=== PATIENT | female | born 2000 | race Caucasian/White ===

== ENCOUNTER 2020-01-05 00:03 | Inpatient (IN) | payer OTHER ==
[~2020-01-05] VITALS: Ht 170.2 cm; Wt 114.3 kg
--- OUTSIDE RECORDS SUMMARY | ~2020-01-05 | XMS | Encounter Summary ---
Demographics + + + | Address | [address] | | | [place] [address] | + + + | Home Phone | | + + + | Preferred Language | Unknown | + + + | Marital Status | Single | + + + | Anabaptism Affiliation | Unknown | + + + | Race | White | + + + | Ethnic Group | Not or | + + + Author + + + | Author | [facility] | | | and [place] | + + + | Organization | [facility] | | | and [place] | + + + | Address | Unknown | + + + | Phone | Unavailable | + + + Support + + +---------+ + | Name | Relationship | Address | Phone | + + +---------+ + | Radha L Milo | ECON | Unknown | | + + +---------+ + Care Team Providers + +------+ + | Care Webfed Offset Press Operator Name | Role | Phone | + +------+ + PCP | Unavailable | + +------+ + Encounter Details +--------+ + + + + | Date | Type | Department | Care Team | Description | +--------+ + + + + | 12/15/ | Hospital | [facility] | | | | 2002 - | Encounter | [facility] | | | | | | [address] | | | | 12/18/ | | [place] [address] | | | | 2002 | | [phone] | | | +--------+ + + + + Social History + +-------+ +--------+------+ | Tobacco Use | Types | Packs/Day | Years | Date | | | | | Used | | + +-------+ +--------+------+ | Never Assessed | | | | | + +-------+ +--------+------+ + + + | Sex Assigned at | Date Recorded | | | | + + + | Not on file | | + + + documented as of this encounter Plan of Treatment Not on filedocumented as of this encounter Visit Diagnoses Not on filedocumented in this encounter"
--- OUTSIDE RECORDS SUMMARY | ~2020-01-05 | XMS | Clinical Summary ---
Demographics + + + | Address | [address] | | | [place] [address] | + + + | Home Phone | | + + + | Preferred Language | Unknown | + + + | Marital Status | Single | + + + | Rastafari Affiliation | Unknown | + + + | Race | White | + + + | Ethnic Group | Not or | + + + Author + + + | Author | [facility] | | | and [place] | + + + | Organization | [facility] | | | and [...] Team Providers + +------+ + | Care Certified Technician Specialist Name | Role | Phone | + +------+ + | Unknown, Doctor | PCP | | + +------+ + Allergies No Known Allergies Medications + + + +---------+------+------+-------+ | Medication | Sig | Dispensed | Refills | Star | End | Statu | | | | | | t | Date | s | | | | | | Date | | | + + + +---------+------+------+-------+ | Multiple | Take 1 tablet by | | 0 | | | Activ | | Vitamins-Minerals | mouth Daily. | | | | | e | | (ADULT MULTIVITAMIN | | | | | | | | WITH MINERALS/IRON) | | | | | | | | TABS | | | | | | | + + + +---------+------+------+-------+ Active Problems Not on file Social History + +-------+ +--------+------+ | Tobacco Use | Types | Packs/Day | Years | Date | | | | | Used | | + +-------+ +--------+------+ | Never Smoker | | | | | + +-------+ +--------+------+ + + +---------+ + | Alcohol Use | Drinks/Week | oz/Week | Comments | + + +---------+ + | No | | | | + + +---------+ + + + + | Sex Assigned at | Date Recorded | | | | + + + | Not on file | | + + + Last Filed Vital Signs + + + + + | Vital Sign | Reading | Time Taken | Comments | + + + + + | Blood Pressure | 115/65 | 12/20/2015 7:42 PM | | | | | PDT | | + + + + + | Pulse | 77 | 12/20/2015 7:42 PM | | | | | PDT | | + + + + + | Temperature | 37.4 C (99.4 F) | 12/20/2015 7:42 PM | | | | | PDT | | + + + + + | Respiratory Rate | 16 | 12/20/2015 7:42 PM | | | | | PDT | | + + + + + | Oxygen Saturation | 99% | 12/20/2015 7:42 PM | | | | | PDT | | + + + + + | Inhaled Oxygen | - | - | | | Concentration | | | | + + + + + | Weight | 94.8 kg (209 lb) | 12/20/2015 4:45 PM | | | | | PDT | | + + + + + | Height | 170.2 cm (5' 7") | 12/20/2015 4:37 PM | | | | | PDT | | + + + + + | Body Mass Index | 32.73 | 12/20/2015 4:37 PM | | | | | PDT | | + + + + + Plan of Treatment + + +-------+ + | Health Maintenance | Due Date | Last | Comments | | | | Done | | + + +-------+ + | Well Child Check | | | | | | 4 | | | + + +-------+ + | Vaccine: HPV (1 - | | | | | 2-dose series) | 2 | | | + + +-------+ + | Vaccine: | | | | | Dtap/Tdap/Td (1 - | 0 | | | | Tdap) | | | | + + +-------+ + | Vaccine: Influenza | | | | | (#1) | 0 | | | + + +-------+ + Results Not on filefrom Last 3 Months Advance Directives + + + + + | Type | Date Recorded | Patient | Explanation | | | | Metallurgical Engineer | | + + + + + | Power of | | | | | Controls Engineer | | | | + + + + + | Advance | 12/20/2015 5:45 | | | | Directive | PM | | | + + + + +
--- OUTSIDE RECORDS SUMMARY | ~2020-01-05 | XMS | Encounter Summary ---
Demographics + + + | Address | [address] | | | [place] [address] | + + + | Home Phone | | + + + | Preferred Language | Unknown | + + + | Marital Status | Single | + + + | Mu-Ism Affiliation | Unknown | + + + | Race | White | + + + | Ethnic Group | Not or | + + + Author + + + | Author | [facility] | | | and Juan Pabloana | + + + | Organization | [facility] | | | and [...] Team Providers + +------+ + | Care As400 Consultant Name | Role | Phone | + +------+ + | Unknown, Doctor | PCP | | + +------+ + Reason for Visit + + + | Reason | Comments | + + + | Abdominal Pain | | + + + Encounter Details +--------+ + + + + | Date | Type | Department | Care Team | Description | +--------+ + + + + | 12/19/ | Emergency | [facility] | Jm Simeon, | Sofiaelonephritis | | 2016 | | [facility] | MD [address] | (Primary Dx) | | | | CENTER [address] | [facility] [place] | | | | | [place], [place] | [place] [address] | | | | | [address] | [phone] | | | | | [phone] | | | +--------+ + + + [...] + + documented as of this encounter Last Filed Vital Signs + + + [...] | | + + + + + documented in this encounter Discharge Instructions Instructions Jm Simeon MD - 12/20/2015Take the antibiotics as prescribed Tylenol and/or ibuprofen for pain Stay well-hydrated Follow-up with your primary care provider AttachmentsThe following attachments cannot be sent through Care Everywhere.PYELONEPHRITIS (PEDIATRIC), DISCHARGE INSTRUCTIONS (FAROESE)documented in this encounter Medications at Time of Discharge + + + +---------+ + + | Medication | Sig | Dispensed | Refills | Start | End Date | | | | | | Date | | + + + +---------+ + + | Multiple | Take 1 tablet by | | 0 | | | | Vitamins-Minerals | mouth Daily. | | | | | | (ADULT MULTIVITAMIN | | | | | | | WITH MINERALS/IRON) | | | | | | | TABS | | | | | | + + + +---------+ + + | cefdinir (OMNICEF) | Take 1 capsule by | 20 | 0 | 12/20/19 | | | 300 mg capsule | mouth 2 times daily | capsule | | 16 | 6 | | | for 10 days. | | | | | + + + +---------+ + + documented as of this encounter ED Raza Cage RN - 12/20/2015 7:41 PM PDTPt d/c in stable condition with family.El ectronically signed by Raza Albert RN at 12/20/2015 7:42 PM Jm Woodson MD - 12/20/2015 5:06 PM PDT [facility] Princess Pedraza Emergency Department Encounter Note [address] [place] [id number] PCP:Doctor Unknown [phone] CHIEF COMPLAINT Chief Complaint Patient presents with Abdominal Pain HPI Princess Pedraza is a 15 y.o. female who presents to the emergency department with righ t flank pain. This patient has been having right flank pain for the past 2 weeks. The pain seems to be more severe. The pain is constant with episodes of increased pain. She's had intermittent nausea. No diarrhea or constipation. She does started her menstrual cycle tod ay. She denies dysuria or frequency. He should. No fever. She is having some pain in the right side of her back as well. She's had mild similar pains before, none this severe. Mo ving does tend to make the pain worse. Holding still makes the pain better however she stil l has the pain. She denies any injuries. She is providing her own history. She is accompa nied by her parents here in the ER. She is from [place], [place]. PAST MEDICAL HISTORY No past medical history on file. SURGICAL HISTORY No past surgical history on file. CURRENT MEDICATIONS Discharge Medication List as of 12/20/2015 19:42 CONTINUE these medications which have NOT CHANGED Details Multiple Vitamins-Minerals (ADULT MULTIVITAMIN WITH MINERALS/IRON) TABS Take 1 tablet by mo uth Daily.Historical Med ALLERGIES No Known Allergies FAMILY HISTORY No family history on file. SOCIAL HISTORY Social History Social History Marital Status: Single Spouse Name: N/A Number of Children: N/A Years of Education: N/A Social History Main Topics Smoking status: Never Smoker Smokeless tobacco: Not on file Alcohol Use: No Drug Use: Not on file Sexual Activity: Not on file Other Topics Concern Not on file Social History Narrative No narrative on file REVIEW OF SYSTEMS All systems reviewed and found negative except what is in the HPI PHYSICAL EXAM VITAL SIGNS: BP 137/73 mmHg | Pulse 103 | Temp(Src) 37.3 C (99.2 F) (Oral) | Resp 16 | Ht 1.702 m (5' 7") | Wt 94.802 kg (209 lb) | BMI 32.73 kg/m2 | SpO2 100% | LMP 12/20/2015 ( Exact Date) Constitutional: Well developed, Well nourished, No acute distress, Non-toxic appearance. HENT: Normocephalic, Atraumatic, Bilateral external ears normal, Mucous membranes are mois t, Nasal mucosa is normal. Oropharynx is clear. Eyes: Conjunctiva normal, No discharge. Palpebral conjunctiva are pink. Neck: Normal range of motion, No tenderness, Supple, No stridor. Respiratory: No respiratory distress, No wheezing Cardiovascular: Normal heart rate, Normal rhythm, No murmurs appreciated. GI: Soft, mild right mid abdomen tenderness, No peritoneal signs, No masses Extremities: Warm and well perfused, no edema, no joint swelling or deformity. Good ROM. Back: No CVAT, No tenderness of the thoracic or lumbar spine. Skin: Warm, Dry, No erythema, No induration, No rash. Neurologic: Alert & oriented x 3, No focal motor or sensory deficits. Speech is clear. G ait is normal. RADIOLOGY CT scan of the abdomen and pelvis with IV contrast: IMPRESSION: No significant findings on CT abdomen pelvis ED COURSE & MEDICAL DECISION MAKING Pertinent Labs & Imaging studies reviewed. (See chart for details) The patient was seen and examined shortly after arriving in the emergency department. Hist ory and physical were obtained, vital signs were noted. Patient has right-sided abdomen lion n. UA is convincing for infection. She had some tenderness on exam with a elevated white b lood cell count. The CT scan was done with the findings noted above. Her findings are most consistent with right-sided pyelonephritis. Outpatient treatment is indicated. She was gi herminia a first dose of antibiotics here in the ER. FINAL IMPRESSION 1. Pyelonephritis PLAN Follow-up Information Follow up with your doctor In 1 week. Follow up with Henok [facility]. Call in 1 day. Why: to help get referred to a primary care provider Contact information: [phone] Discharge Medication List as of 12/20/2015 19:42 START taking these medications Details cefdinir (OMNICEF) 300 mg capsule Take 1 capsule by mouth 2 times daily for 10 days.Disp-20 capsule, R-0, Print Jm Simeon MD 12/20/15 [id number] docume nted in this encounter Miscellaneous Notes ED Triage Notes - Raza Albert RN - 12/20/2015 4:35 PM PDTPt c/o RUQ pain for keyana andrew 2 weeks, becoming more severe. Intermittent nausea, no change in BM. Electronically sign ed by Raza Albert RN at 12/20/2015 4:37 PM PDTdocumented in this encounter Plan of Treatment Not on filedocumented as of this encounter Procedures + +--------+ + + + | Procedure Name | Priori | Date/Time | Associated Diagnosis | Comments | | | ty | | | | + +--------+ + + + | CT ABDOMEN PELVIS W | STAT | 12/20/2015 | | Results for this | | CONTRAST | | 6:40 PM | | procedure are in the | | | | PDT | | results section. | + +--------+ + + + | CBC WITH | STAT | 12/20/2015 | | Results for this | | DIFFERENTIAL | | 5:46 PM | | procedure are in the | | | | PDT | | results section. | + +--------+ + + + | , SERUM, | STAT | 12/20/2015 | | Results for this | | QUAL | | 5:46 PM | | procedure are in the | | | | PDT | | results section. | + +--------+ + + + | LIPASE | STAT | 12/20/2015 | | Results for this | | | | 5:46 PM | | procedure are in the | | | | PDT | | results section. | + +--------+ + + + | COMPREHENSIVE | STAT | 12/20/2015 | | Results for this | | METABOLIC PANEL | | 5:46 PM | | procedure are in the | | | | PDT | | results section. | + +--------+ + + + | URINALYSIS WITH | STAT | 12/20/2015 | | Results for this | | MICROSCOPIC WITH | | 5:37 PM | | procedure are in the | | CULTURE IF INDICATED | | PDT | | results section. | + +--------+ + + + | CULTURE, URINE | Routin | 12/20/2015 | | Results for this | | | e | 5:37 PM | | procedure are in the | | | | PDT | | results section. | + +--------+ + + + documented in this encounter Results CT Abdomen Pelvis w Contrast (12/20/2015 6:40 PM PDT) + + | Specimen | + + | | + + + + + | Narrative | Performed At | + + + | EXAM: CT ABDOMEN PELVIS W CONTRAST dated 12/20/2015 6:35 PM | [facility] | | HISTORY:right side abdominal pain Comparison: None. TECHNIQUE: | | | Imaging is performed from the lung bases through the pubic symphysis | | | following the uneventful intravenous administration of 85 mL | | | Omnipaque 350. DOSE: DLP 612.10 mGy-cm FINDINGS: LUNG | | | BASES: The lung bases are clear. There is no visible pleural | | | effusion or pneumothorax. There is no significant pericardial | | | thickening. LIVER: The liver is unremarkable in attenuation and | | | enhancement. There are no focal liver lesions. GALLBLADDER: The | | | gallbladder is not distended. There are no calcified | | | cholelithiasis. No visible biliary ductal dilatation. SPLEEN: | | | The spleen is unremarkable. There is no splenomegaly. PANCREAS: | | | The pancreas is unremarkable. The pancreatic duct is not dilated. | | | ADRENALS: No adrenal enlargement. No adrenal masses. KIDNEYS: | | | The kidneys are symmetrically enhancing. There are no focal renal | | | lesions. There is no nephrolithiasis. There is no obstructive | | | uropathy. BOWEL: The gastrointestinal tract is unremarkable. | | | There is no evidence for gastrointestinal tract obstruction. | | | There is no evidence for appendicitis. There is no significant | | | diverticular disease. VASCULATURE AND LYMPH NODES: There is no | | | aneurysmal dilatation of the abdominal aorta. The major venous | | | structures are patent and unremarkable. There is no pelvic or | | | abdominal lymphadenopathy. BLADDER: The bladder is decompressed | | | and not well evaluated. UTERUS AND ADNEXA:The uterus is | | | unremarkable. There is a prominent follicle in the left ovary. | | | BONES: There are no acute osseous abnormalities. There are no lytic | | | or blastic bone lesions. OTHER: There is no free fluid. There | | | is no free air. IMPRESSION - Negative for acute abdominal or | | | pelvic process. The preliminary report is provided by Dr. Noland | | | on December 20, 2015 at 6:54 PM. Dictated and Signed by: | | | Lázaro San MD Electronically signed: 12/21/2015 8:08 AM | | + + + + + | Procedure Note | + + | Ankush Alcazar Results In - 12/21/2015 8:11 AM PDT EXAM: CT ABDOMEN PELVIS W CONTRAST | | dated 12/20/2015 6:35 PMHISTORY:right side abdominal painComparison: None.TECHNIQUE: | | Imaging is performed from the lung bases through the pubic symphysisfollowing the | | uneventful intravenous administration of 85 mL Omnipaque 350.DOSE: DLP 612.10 | | mGy-cmFINDINGS: LUNG BASES: The lung bases are clear. There is no visible pleural | | effusion orpneumothorax. There is no significant pericardial thickening.LIVER: The | | liver is unremarkable in attenuation and enhancement. There are nofocal liver | | lesions.GALLBLADDER: The gallbladder is not distended. There are no | | calcifiedcholelithiasis. No visible biliary ductal dilatation.SPLEEN: The spleen is | | unremarkable. There is no splenomegaly.PANCREAS: The pancreas is unremarkable. The | | pancreatic duct is not dilated.ADRENALS: No adrenal enlargement. No adrenal | | masses.KIDNEYS: The kidneys are symmetrically enhancing. There are no focal | | renallesions. There is no nephrolithiasis. There is no obstructive uropathy.BOWEL: The | | gastrointestinal tract is unremarkable. There is no evidence forgastrointestinal tract | | obstruction. There is no evidence for appendicitis. There is no significant | | diverticular disease.VASCULATURE AND LYMPH NODES: There is no aneurysmal dilatation of | | the abdominalaorta. The major venous structures are patent and unremarkable. There is | | nopelvic or abdominal lymphadenopathy.BLADDER: The bladder is decompressed and not well | | evaluated.UTERUS AND ADNEXA:The uterus is unremarkable. There is a prominent follicle | | inthe left ovary.BONES: There are no acute osseous abnormalities. There are no lytic or | | blasticbone lesions.OTHER: There is no free fluid. There is no free air.IMPRESSION - | | Negative for acute abdominal or pelvic process.The preliminary report is provided by | | Ludin on December 20, 2015 at 6:54PM.Dictated and Signed by: Lázaro San MD | | Electronically signed: 12/21/2015 8:08 AM | |PANCREAS: The pancreas is unremarkable. The pancreatic duct is not dilated. | | | |ADRENALS: No adrenal enlargement. No adrenal masses. | | | |KIDNEYS: The kidneys are symmetrically enhancing. There are no focal renal | |lesions. There is no nephrolithiasis. There is no obstructive uropathy. | | | |BOWEL: The gastrointestinal tract is unremarkable. There is no evidence for | |gastrointestinal tract obstruction. There is no evidence for appendicitis. | |There is no significant diverticular disease. | | | |VASCULATURE AND LYMPH NODES: There is no aneurysmal dilatation of the abdominal | |aorta. The major venous structures are patent and unremarkable. There is no | |pelvic or abdominal lymphadenopathy. | | | |BLADDER: The bladder is decompressed and not well evaluated. | | | |UTERUS AND ADNEXA:The uterus is unremarkable. There is a prominent follicle in | |the left ovary. | | | |BONES: There are no acute osseous abnormalities. There are no lytic or blastic | |bone lesions. | | | |OTHER: There is no free fluid. There is no free air. | | | |IMPRESSION - | | | |Negative for acute abdominal or pelvic process. | | | |The preliminary report is provided by Dr. Noland on December 20, 2015 at 6:54 | |PM. | | | | | |Dictated and Signed by: Lázaro San MD | | Electronically signed: 12/21/2015 8:08 AM | + + + +---------+ + + | Performing | Address | City/State/Zipcode | Phone Number | | Organization | | | | + +---------+ + + | [facility] | | | | + +---------+ + + , Serum, Qual (12/20/2015 5:46 PM PDT) + + + + + + | Component | Value | Ref Range | Performed | Pathologist | | | | | At | Signature | + + + + + + | hCG Screen, | Negative | Negative | [facility] | | | Serum | | | [facility] | | | | | | MEDICAL | | | | | | CENTER - | | | | | | LABORATORY | | + + + + + + + + | Specimen | + + | Blood | + + + + + + + | Performing | Address | City/State/Zipcode | Phone Number | | Organization | | | | + + + + + | [facility] | [address] | [place] | [phone] | | [facility] | | [address] | | | - LABORATORY | | | | + + + + + Lipase (12/20/2015 5:46 PM PDT) + +-------+ + + + | Component | Value | Ref Range | Performed | Pathologist | | | | | At | Signature | + +-------+ + + + | Lipase | 21 | 0 - 60 U/L | [facility] | | | | | | [facility] | | | | | | MEDICAL | | | | | | CENTER - | | | | | | LABORATORY | | + +-------+ + + + + + | Specimen | + + | Blood | + + + + + + + | Performing | Address | City/State/Zipcode | Phone Number | | Organization | | | | + + + + + | [facility] | [address] | [place] | [phone] | | [facility] | | [address] | | | - LABORATORY | | | | + + + + + Comprehensive Metabolic Panel (12/20/2015 5:46 PM PDT) + + + + + + | Component | Value | Ref Range | Performed | Pathologist | | | | | At | Signature | + + + + + + | Na | 142 | 136 - 149 | [facility] | | | | | mmol/L | [facility] | | | | | | MEDICAL | | | | | | CENTER - | | | | | | LABORATORY | | + + + + + + | K | 3.6 | 3.5 - 5.1 | [facility] | | | | | mmol/L | [facility] | | | | | | MEDICAL | | | | | | CENTER - | | | | | | LABORATORY | | + + + + + + | Cl | 106 | 98 - 109 mmol/L | [facility] | | | | | | [facility] | | | | | | MEDICAL | | | | | | CENTER - | | | | | | LABORATORY | | + + + + + + | CO2 | 23 (L) | 24 - 31 mmol/L | [facility] | | | | | | [facility] | | | | | | MEDICAL | | | | | | CENTER - | | | | | | LABORATORY | | + + + + + + | Anion Gap | 13 | 3 - 16 mmol/L | [facility] | | | | | | [facility] | | | | | | MEDICAL | | | | | | CENTER - | | | | | | LABORATORY | | + + + + + + | Glucose | 101 | 70 - 109 mg/dL | [facility] | | | | | | [facility] | | | | | | MEDICAL | | | | | | CENTER - | | | | | | LABORATORY | | + + + + + + | BUN | 9 | 7 - 18 mg/dL | [facility] | | | | | | [facility] | | | | | | MEDICAL | | | | | | CENTER - | | | | | | LABORATORY | | + + + + + + | Creatinine | 0.82 | 0.60 - 1.30 | [facility] | | | | | mg/dL | [facility] | | | | | | MEDICAL | | | | | | CENTER - | | | | | | LABORATORY | | + + + + + + | eGFR, | Comment: GFR not | >=60 | [facility] | | | non- | calculated for this age | mL/min/1.73m2 | [facility] | | | [place] | (<18). | | MEDICAL | | | | | | CENTER - | | | | | | LABORATORY | | + + + + + + | Calcium | 9.1 | 8.3 - 10.5 | [facility] | | | | | mg/dL | [facility] | | | | | | MEDICAL | | | | | | CENTER - | | | | | | LABORATORY | | + + + + + + | Albumin | 4.1 | 3.2 - 5.0 g/dL | [facility] | | | | | | [facility] | | | | | | MEDICAL | | | | | | CENTER - | | | | | | LABORATORY | | + + + + + + | Bilirubin | 0.7Comment: This is an | <2.0 mg/dL | [facility] | | | Total | appended report. These | | [facility] | | | | results have been | | MEDICAL | | | | appended to a previously | | CENTER - | | | | preliminary verified | | LABORATORY | | | | report. | | | | + + + + + + | Total | 6.7 | 6.0 - 7.8 g/dL | [facility] | | | Protein | | | [facility] | | | | | | MEDICAL | | | | | | CENTER - | | | | | | LABORATORY | | + + + + + + | AST | 19Comment: This is an | 10 - 42 U/L | [facility] | | | | appended report. These | | [facility] | | | | results have been | | MEDICAL | | | | appended to a previously | | CENTER - | | | | preliminary verified | | LABORATORY | | | | report. | | | | + + + + + + | ALT | 17Comment: This is an | 6 - 45 U/L | [facility] | | | | appended report. These | | [facility] | | | | results have been | | MEDICAL | | | | appended to a previously | | CENTER - | | | | preliminary verified | | LABORATORY | | | | report. | | | | + + + + + + | Alkaline | 80Comment: This is an | 40 - 110 U/L | [facility] | | | Phosphatase | appended report. These | | [facility] | | | | results have been | | MEDICAL | | | | appended to a previously | | CENTER - | | | | preliminary verified | | LABORATORY | | | | report. | | | | + + + + + + | Globulin | 2.6 | 2.1 - 3.8 g/dL | [facility] | | | | | | [facility] | | | | | | MEDICAL | | | | | | CENTER - | | | | | | LABORATORY | | + + + + + + | Albumin/Angelina | 1.6 | 0.8 - 2.0 | [facility] | | | bulin Ratio | | | [facility] | | | | | | MEDICAL | | | | | | CENTER - | | | | | | LABORATORY | | + + + + + + | BUN/Creatin | 11.0 | | [facility] | | | ine Ratio | | | [facility] | | | | | | MEDICAL | | | | | | CENTER - | | | | | | LABORATORY | | + + + + + + + + | Specimen | + + | Blood | + + + + + + + | Performing | Address | City/State/Zipcode | Phone Number | | Organization | | | | + + + + + | [facility] | [address] | [place] | [phone] | | [facility] | | [address] | | | - LABORATORY | | | | + + + + + CBC with Differential (12/20/2015 5:46 PM PDT) + + + + + + | Component | Value | Ref Range | Performed | Pathologist | | | | | At | Signature | + + + + + + | White Blood | 13.4 (H) | 4.0 - 11.0 K/uL | [facility] | | | Cells | | | [facility] | | | | | | MEDICAL | | | | | | CENTER - | | | | | | LABORATORY | | + + + + + + | Red Blood | 4.76 | 3.70 - 5.20 | [facility] | | | Cells | | M/uL | [facility] | | | | | | MEDICAL | | | | | | CENTER - | | | | | | LABORATORY | | + + + + + + | Hemoglobin | 13.9 | 11.5 - 16.0 | [facility] | | | | | g/dL | [facility] | | | | | | MEDICAL | | | | | | CENTER - | | | | | | LABORATORY | | + + + + + + | Hematocrit | 39.4 | 34.0 - 47.0 % | [facility] | | | | | | [facility] | | | | | | MEDICAL | | | | | | CENTER - | | | | | | LABORATORY | | + + + + + + | MCV | 82.7 (L) | 83.0 - 101.0 fL | [facility] | | | | | | [facility] | | | | | | MEDICAL | | | | | | CENTER - | | | | | | LABORATORY | | + + + + + + | MCH | 29.1 | 28.0 - 35.0 pg | [facility] | | | | | | [facility] | | | | | | MEDICAL | | | | | | CENTER - | | | | | | LABORATORY | | + + + + + + | MCHC | 35.3 | 32.0 - 36.0 | [facility] | | | | | g/dL | [facility] | | | | | | MEDICAL | | | | | | CENTER - | | | | | | LABORATORY | | + + + + + + | RDW-CV | 13.9 | <15.0 % | [facility] | | | | | | [facility] | | | | | | MEDICAL | | | | | | CENTER - | | | | | | LABORATORY | | + + + + + + | Platelet | 250 | 140 - 440 K/uL | [facility] | | | Count | | | [facility] | | | | | | MEDICAL | | | | | | CENTER - | | | | | | LABORATORY | | + + + + + + | MPV | 7.6 | fL | [facility] | | | | | | [facility] | | | | | | MEDICAL | | | | | | CENTER - | | | | | | LABORATORY | | + + + + + + | % | 75.4 | 45.0 - 82.0 % | [facility] | | | Neutrophils | | | [facility] | | | | | | MEDICAL | | | | | | CENTER - | | | | | | LABORATORY | | + + + + + + | % | 17.3 (L) | 20.0 - 45.0 % | [facility] | | | Lymphocytes | | | [facility] | | | | | | MEDICAL | | | | | | CENTER - | | | | | | LABORATORY | | + + + + + + | % Monocytes | 6.2 | 4.0 - 12.0 % | [facility] | | | | | | [facility] | | | | | | MEDICAL | | | | | | CENTER - | | | | | | LABORATORY | | + + + + + + | % | 0.5 | 0.0 - 5.0 % | [facility] | | | Eosinophils | | | [facility] | | | | | | MEDICAL | | | | | | CENTER - | | | | | | LABORATORY | | + + + + + + | % Basophils | 0.6 | 0.0 - 1.0 % | [facility] | | | | | | [facility] | | | | | | MEDICAL | | | | | | CENTER - | | | | | | LABORATORY | | + + + + + + | Absolute | 10.10 (H) | 1.80 - 8.50 | [facility] | | | Neutrophils | | K/uL | [facility] | | | | | | MEDICAL | | | | | | CENTER - | | | | | | LABORATORY | | + + + + + + | Absolute | 2.30 | 0.60 - 3.20 | [facility] | | | Lymphocytes | | K/uL | [facility] | | | | | | MEDICAL | | | | | | CENTER - | | | | | | LABORATORY | | + + + + + + | Absolute | 0.80 | 0.00 - 1.00 | [facility] | | | Monocytes | | K/uL | [facility] | | | | | | MEDICAL | | | | | | CENTER - | | | | | | LABORATORY | | + + + + + + | Absolute | 0.10 | 0.00 - 0.40 | [facility] | | | Eosinophils | | K/uL | [facility] | | | | | | MEDICAL | | | | | | CENTER - | | | | | | LABORATORY | | + + + + + + | Absolute | 0.10 | 0.00 - 0.10 | [facility] | | | Basophils | | K/uL | [facility] | | | | | | MEDICAL | | | | | | CENTER - | | | | | | LABORATORY | | + + + + + + + + | Specimen | + + | Blood | + + + + + + + | Performing | Address | City/State/Zipcode | Phone Number | | Organization | | | | + + + + + | [facility] | [address] | [place] | [phone] | | [facility] | | [address] | | | - LABORATORY | | | | + + + + + Culture, Urine (12/20/2015 5:37 PM PDT) + + + + + + | Component | Value | Ref Range | Performed | Pathologist | | | | | At | Signature | + + + + + + | Culture | No Growth | | [facility] | | | | | | [facility] | | | | | | MEDICAL | | | | | | CENTER - | | | | | | LABORATORY | | + + + + + + + + | Specimen | + + | Urine - Urine | | specimen obtained | | via indwelling | | urinary catheter | | (specimen) | + + + + + + + | Performing | Address | City/State/Zipcode | Phone Number | | Organization | | | | + + + + + | [facility] | [address] | [place] | [phone] | | [facility] | | [address] | | | - LABORATORY | | | | + + + + + Urinalysis with Microscopic with Culture if Indicated (12/20/2015 5:37 PM PDT) + + + + + + | Component | Value | Ref Range | Performed | Pathologist | | | | | At | Signature | + + + + + + | Color, | Lida (A) | Light Yellow, | [facility] | | | Urine | | Yellow, Straw | [facility] | | | | | | MEDICAL | | | | | | CENTER - | | | | | | LABORATORY | | + + + + + + | Clarity, | Hazy (A) | Clear | [facility] | | | Urine | | | [facility] | | | | | | MEDICAL | | | | | | CENTER - | | | | | | LABORATORY | | + + + + + + | pH, Urine | 5.0 | 5.0 - 8.0 | [facility] | | | | | | [facility] | | | | | | MEDICAL | | | | | | CENTER - | | | | | | LABORATORY | | + + + + + + | Specific | 1.045 (H) | 1.001 - 1.030 | [facility] | | | [place], | | | [facility] | | | Urine | | | MEDICAL | | | | | | CENTER - | | | | | | LABORATORY | | + + + + + + | Protein, | 100 mg/dL (A) | Negative | [facility] | | | Urine | | | [facility] | | | | | | MEDICAL | | | | | | CENTER - | | | | | | LABORATORY | | + + + + + + | Blood, | Negative | Negative | [facility] | | | Urine | | | [facility] | | | | | | MEDICAL | | | | | | CENTER - | | | | | | LABORATORY | | + + + + + + | Glucose, | Negative | Negative | [facility] | | | Urine | | | [facility] | | | | | | MEDICAL | | | | | | CENTER - | | | | | | LABORATORY | | + + + + + + | Ketones, | 20 mg/dL (A) | Negative | [facility] | | | Urine | | | [facility] | | | | | | MEDICAL | | | | | | CENTER - | | | | | | LABORATORY | | + + + + + + | Bilirubin, | Small (A) | Negative | [facility] | | | Urine | | | [facility] | | | | | | MEDICAL | | | | | | CENTER - | | | | | | LABORATORY | | + + + + + + | Nitrite, | Negative | Negative | [facility] | | | Urine | | | [facility] | | | | | | MEDICAL | | | | | | CENTER - | | | | | | LABORATORY | | + + + + + + | Leukocyte | Negative | Negative | [facility] | | | Esterase, | | | [facility] | | | Urine | | | MEDICAL | | | | | | CENTER - | | | | | | LABORATORY | | + + + + + + | Urobilinoge | Negative | 0.2 mg/dL, 1.0 | [facility] | | | n, Urine | | mg/dL, Negative | [facility] | | | | | | MEDICAL | | | | | | CENTER - | | | | | | LABORATORY | | + + + + + + | White Blood | 10-15 (A) | 0 - 2 /HPF | [facility] | | | Cells, | | | [facility] | | | Urine | | | MEDICAL | | | | | | CENTER - | | | | | | LABORATORY | | + + + + + + | Red Blood | 2-5 (A) | 0 - 2 /HPF | [facility] | | | Cells, | | | [facility] | | | Urine | | | MEDICAL | | | | | | CENTER - | | | | | | LABORATORY | | + + + + + + | Squamous | 50-100 (A) | 0 - 2 /LPF | [facility] | | | Epithelial | | | [facility] | | | Cells, | | | MEDICAL | | | Urine | | | CENTER - | | | | | | LABORATORY | | + + + + + + | Transitiona | 0-2 | 0 - 2 /HPF | [facility] | | | l | | | [facility] | | | Epithelial | | | MEDICAL | | | Cells, | | | CENTER - | | | Urine | | | LABORATORY | | + + + + + + | Bacteria, | 1+ (A) | Negative /HPF | [facility] | | | Urine | | | [facility] | | | | | | MEDICAL | | | | | | CENTER - | | | | | | LABORATORY | | + + + + + + | Mucus, | Present (A) | Negative /LPF | [facility] | | | Urine | | | [facility] | | | | | | MEDICAL | | | | | | CENTER - | | | | | | LABORATORY | | + + + + + + | Urine | Urine Culture Set Up | | [facility] | | | Comment | | | [facility] | | | | | | MEDICAL | | | | | | CENTER - | | | | | | LABORATORY | | + + + + + + + + | Specimen | + + | Urine - Urine | | specimen obtained | | via indwelling | | urinary catheter | | (specimen) | + + + + + + + | Performing | Address | City/State/Zipcode | Phone Number | | Organization | | | | + + + + + | [facility] | [address] | [place] | [phone] | | [facility] | | [address] | | | - LABORATORY | | | | + + + + + documented in this encounter Visit Diagnoses + + | Diagnosis | + + | Pyelonephritis - Primary Pyelonephritis, unspecified | + + documented in this encounter Administered Medications + +---------+ +------+-------+------+ | Medication Order | MAR | Action | Dose | Rate | Site | | | Action | Date | | | | + +---------+ +------+-------+------+ | cefTRIAXone (ROCEPHIN) 1 g in | New Bag | 12/20/19 | 1 g | 100 | | | sodium chloride 0.9% 50 mL IVPB | | 16 7:10 | | mL/hr | | | 1 g, Intravenous, Administer over | | PM PDT | | | | | 30 Minutes, ONCE, Olga 9/22/16 at | | | | | | | 1905, For 1 dose, Activate | | | | | | | system and mix before use., | | | | | | | Indications: UTI - UPPER | | | | | | + +---------+ +------+-------+------+ +---+---+ | | | +---+---+ + +-------+ +--------+---+---+ | iohexol (OMNIPAQUE 350) 350 | Given | 12/20/19 | 85 mLs | | | | mg/mL injection 85 mL 85 mL, | | 16 6:40 | | | | | Intravenous, ONCE PRN, Other, | | PM PDT | | | | | Starting [facility] 12/20/15 at 1830, For | | | | | | | 1 dose, Cat Scanner | | | | | | + +-------+ +--------+---+---+ +---+---+ | | | +---+---+ documented in this encounter
[~2020-01-05 00:03] MED LIST: ACETAMINOPHEN325 M1 PO; MOTRIN IB200 MG PO; PERCOCET 7.5-31 EACH PO
[2020-01-05] MEDS ORDERED: ASPIRIN81 MG PO (00:44)
[2020-01-05] MEDS ORDERED: VITAFOL-OB+DHA1 EACH PO (00:45)
--- NOTE | 2020-01-05 18:33 | PR ---
[facility] [address] [facility] [place], [place] [address] Signed Progress Notes IP Datetime Report Generated by CPN: 01/05/2020 18:33 PROGRESS NOTES: [id number] Impression: Reassuring Heart Rate Plan: Continue Present Management Other Informed Consents: IOL VITAL SIGNS: [id number] Vital Signs: Reviewed; Within Normal Limits EXAM: [id number] Dilatation: 1.0 Effacement: 40 Station: -3 Contractions: Irritability MEMBRANES: [id number] Comments: Pt w/ continued unfavorable cervix w/ cytotec. Continue cervical ripening per protocol overnight. Discussed anticipated course of induction. Pt very pleasant and understanding. All questions answered FETUS A: [id number] FHR Baseline: 125 Variability: Moderate 6-25bpm Accelerations: 15X15 Decelerations: None FHR Category: Category I Presentation: Vertex Comments on Fetus A: No evidence of metabolic acidosis FETUS B: [id number] Signing Physician: Jimmy So DO Copies: ~ *Electronically Signed* 01/05/20 1833 JIMMY SO DO PATIENT NAME: NUBIA SMITH PROGRESS NOTE DATE OF : 00 PHYSICIAN: JIMMY SO DO RPT #: [id number] REPORT IS CONFIDENTIAL AND NOT TO BE RELEASED WITHOUT AUTHORIZATION
--- NOTE | 2020-01-06 08:01 | PR ---
[facility] [address] [facility] [place], [place] [address] Signed Progress Notes IP Datetime Report Generated by CPN: 01/06/2020 08:01 PROGRESS NOTES: [id number] Impression: Reassuring Heart Rate Other Impressions: Ripe cervix Procedures: Artificial ROM; Sterile Vag Exam Plan: Continue Present Management Other Informed Consents: IOL VITAL SIGNS: [id number] Vital Signs: Reviewed; Within Normal Limits EXAM: [id number] Dilatation: 3.0 Effacement: 50 Station: -2 Contractions: Irritability MEMBRANES: [id number] Comments: Pt seen and examined. Doing well. Rare contractions. Cervix ripe and AROM performed without difficulty as previously discussed. Will start PCN prophylaxis. Discussed indications for augmentation if required. FETUS A: [id number] FHR Baseline: 125 Variability: Moderate 6-25bpm Accelerations: 15X15 Decelerations: None FHR Category: Category I Presentation: Vertex Comments on Fetus A: No evidence of metabolic acidosis FETUS B: [id number] Signing Physician: Jimmy So DO Copies: ~ *Electronically Signed* 01/06/20 0801 JIMMY SO DO PATIENT NAME: NUBIA SMITH PROGRESS NOTE DATE OF : 00 PHYSICIAN: JIMMY SO DO RPT #: [id number] REPORT IS CONFIDENTIAL AND NOT TO BE RELEASED WITHOUT AUTHORIZATION
--- NOTE | 2020-01-06 12:06 | PR ---
[facility] [address] [place], [place] [address] Signed Progress Notes IP Datetime Report Generated by CPN: 01/06/2020 12:06 PROGRESS NOTES: [id number] Impression: Normal Progression of Labor; Reassuring Heart Rate Other Impressions: Ripe cervix Procedures: Intrauterine Pressure Catheter; Sterile Vag Exam Plan: Continue Present Management Other Informed Consents: Discussed indications for augmentation w/ pitocin VITAL SIGNS: [id number] Vital Signs: Reviewed; Within Normal Limits EXAM: [id number] Dilatation: 3.0 Effacement: 50 Station: -2 Contractions: Irritability MEMBRANES: [id number] Comments: Pt seen and examined. Minimal cervical change since AROM. Pt reports contractions slightly uncomfortable. Recommended IUPC to monitor contraction adequacy and to help titrate pitocin if necessary. IUPC inserted w/out difficulty. Discussed anticipated course of labor. All questions answered. FETUS A: [id number] FHR Baseline: 125 Variability: Moderate 6-25bpm Accelerations: 15X15 Decelerations: None FHR Category: Category I Presentation: Vertex Comments on Fetus A: No evidence of metabolic acidosis FETUS B: [id number] Signing Physician: Jimmy So DO Copies: ~ *Electronically Signed* 01/06/20 1202 JIMMY SO DO PATIENT NAME: NUBIA SMITH PROGRESS NOTE DATE OF : 00 PHYSICIAN: JIMMY SO DO RPT #: [id number] REPORT IS CONFIDENTIAL AND NOT TO BE RELEASED WITHOUT AUTHORIZATION
--- NOTE | 2020-01-06 12:07 | PR ---
[facility] [address] [place], [place] [address] Signed Progress Notes IP Datetime Report Generated by CPN: 01/06/2020 12:07 PROGRESS NOTES: [id number] Impression: Normal Progression of Labor; Reassuring Heart Rate Other Impressions: Ripe cervix Procedures: Intrauterine Pressure Catheter; Sterile Vag Exam Plan: Continue Present Management Other Informed Consents: Discussed indications for augmentation w/ pitocin VITAL SIGNS: [id number] Vital Signs: Reviewed; Within Normal Limits EXAM: [id number] Dilatation: 3.0 Effacement: 50 Station: -2 Contractions: Irritability MEMBRANES: [id number] Comments: Pt seen and examined. Minimal cervical change since AROM. Pt reports contractions slightly uncomfortable. Recommended IUPC to monitor contraction adequacy and to help titrate pitocin if necessary. IUPC inserted w/out difficulty. Discussed anticipated course of labor. All questions answered. FETUS A: [id number] FHR Baseline: 125 Variability: Moderate 6-25bpm Accelerations: 15X15 Decelerations: None FHR Category: Category I Presentation: Vertex Comments on Fetus A: No evidence of metabolic acidosis FETUS B: [id number] Signing Physician: Jimmy So DO Copies: ~ *Electronically Signed* 01/06/20 8842 JIMMY SO DO PATIENT NAME: NUBIA SMITH PROGRESS NOTE DATE OF : 00 PHYSICIAN: JIMMY SO DO RPT #: [id number] REPORT IS CONFIDENTIAL AND NOT TO BE RELEASED WITHOUT AUTHORIZATION
--- NOTE | 2020-01-06 18:42 | PR ---
[facility] [address] [place], [place] [address] Signed Progress Notes IP Datetime Report Generated by CPN: 01/06/2020 18:42 PROGRESS NOTES: [id number] Impression: Normal Progression of Labor; Reassuring Heart Rate Other Impressions: Ripe cervix Procedures: Sterile Vag Exam Plan: Continue Present Management Other Informed Consents: Discussed indications for augmentation w/ pitocin VITAL SIGNS: [id number] Vital Signs: Reviewed; Within Normal Limits EXAM: [id number] Dilatation: 6.0 Effacement: 80 Station: -2 Contractions: Irritability MEMBRANES: [id number] Comments: Pt seen and examined. S/P epidural and comfortable w/ contractions. Reviewed induction and labor. Cat 1 tracing with slow progress of labor. Reviewed adequate pelvis and EFW. Reviewed contraction pattern and pitocin augmentation. Recommended continue trial of labor, but did review indications for if required. All questions answered to best of my ability and patient and family's apparent satisfaction FETUS A: [id number] FHR Baseline: 125 Variability: Moderate 6-25bpm Accelerations: 15X15 Decelerations: None FHR Category: Category I Presentation: Vertex Comments on Fetus A: No evidence of metabolic acidosis FETUS B: [id number] Signing Physician: Jimmy So DO Copies: ~ *Electronically Signed* 01/06/20 184 JIMMY SO DO PATIENT NAME: SAMMY SMITHLY ABDIEL PROGRESS NOTE DATE OF : 00 PHYSICIAN: JIMMY SO DO RPT #: [id number] REPORT IS CONFIDENTIAL AND NOT TO BE RELEASED WITHOUT AUTHORIZATION
--- NOTE | 2020-01-06 21:16 | PR ---
[facility] [address] [place], [place] [address] Signed Progress Notes IP Datetime Report Generated by CPRobby: 01/06/2020 21:16 PROGRESS NOTES: [id number] Impression: Normal Progression of Labor; Reassuring Heart Rate Other Impressions: Ripe cervix Procedures: Sterile Vag Exam Plan: Continue Present Management; Anesthesia Consult Other Plans: Anesthesia here for epidural rebolus Informed Consent Obtain: Vaginal Delivery Other Informed Consents: Discussed indications for augmentation w/ pitocin VITAL SIGNS: S4701881 Vital Signs: Reviewed; Within Normal Limits EXAM: [id number] Dilatation: 8.0 Effacement: 80 Station: -2 Contractions: Irritability MEMBRANES: [id number] Comments: Pt seen and examined. Much more uncomfortable w/ contractions and requesting epidural bolus. On exam, now 8cm 90% and -1 station. Significant progress from recent cervical exam. Anesthesia here to rebolus patient. Will continue pitocin augmentation per protocol. Expect FETUS A: [id number] FHR Baseline: 125 Variability: Moderate 6-25bpm Accelerations: 15X15 Decelerations: None FHR Category: Category I Presentation: Vertex Comments on Fetus A: No evidence of metabolic acidosis FETUS B: [id number] Signing Physician: Jimmy So DO Copies: ~ *Electronically Signed* 01/06/20 139 JIMMY SO DO PATIENT NAME: SAMMY SMITHLY ABDIEL PROGRESS NOTE DATE OF : 00 PHYSICIAN: JIMMY SO DO RPT #: [id number] REPORT IS CONFIDENTIAL AND NOT TO BE RELEASED WITHOUT AUTHORIZATION
--- NOTE | 2020-01-07 00:44 | PR ---
[facility] [address] [facility] [place], [place] [address] Signed PP Progress Notes Datetime Report Generated by LILLIE: 01/07/2020 00:44 SUBJECTIVE: [id number] Vital Signs: X1361293 Vital Signs: Reviewed; Within Normal Limits Notable Details: No tachycardia and BPs stable. Cardiovascular: Normal Respiratory: Normal Abdomen/Uterus: Normal Lochia: Normal Vulva/Perineum: Normal Breasts: Not Done Extremities: Normal Exam Comments: Fundus firm. No vaginal bleeding noted. IV sites normal with crystaloid bolusing. Pt comfortable and denies chest pain or shortness of breath. Color improved. Wyatt cath draining clear urine. Pt denies lightheadeness/dizziness. IMPRESSION/PLAN/PROCEDURES: [id number] Other Impression: hemorrhage Progress Notes: Pt seen and examined. Vital signs stable and pt feeling better. Good urine output. No ongoing bleeding. Fundus firm. Labs drawn and results pending. Preliminary Hgb 8.9 decreased from 11.5 on admission. Fibrinogen 420, INR, PT PTT normal. 2u typed and crossing and will be administered DEBBI. 2 u FFP ordered. Will repeat labs hourly overnight, and watch output and vitals closely. Signing Physician: Jimmy So DO Copies: ~ *Electronically Signed* 01/07/20 0044 JIMMY SO DO PATIENT NAME: NUBIA SMITH PROGRESS NOTE DATE OF : 00 PHYSICIAN: JIMMY SO DO RPT #: [id number] REPORT IS CONFIDENTIAL AND NOT TO BE RELEASED WITHOUT AUTHORIZATION
--- NOTE | 2020-01-07 01:22 | PR ---
[facility] [address] [facility] [place], [place] [address] Signed PP Progress Notes Datetime Report Generated by CPN: 01/07/2020 01:22 SUBJECTIVE: [id number] Pain: Within Normal Limits Vital Signs: R1081908 Vital Signs: Reviewed; Within Normal Limits Notable Details: No tachycardia and BPs stable. Cardiovascular: Normal Respiratory: Normal Abdomen/Uterus: Normal Lochia: Normal Vulva/Perineum: Normal Breasts: Not Done Extremities: Normal Exam Comments: Improved color. Pt laughing and joking. Fundus firm U-1 nontender IMPRESSION/PLAN/PROCEDURES: [id number] Other Impression: PPH - improved. Progress Notes: Pt seen and examined. Doing much better. Vitals stable. Urine output excellent. Reviewed anticipated course of monitoring. Awaiting blood and FFP for transfusion. Signing Physician: Jimmy So DO Copies: ~ *Electronically Signed* 01/07/20 012 JIMMY SO DO PATIENT NAME: NUBIA SMITH PROGRESS NOTE DATE OF : 00 PHYSICIAN: JIMMY SO DO RPT #: [id number] REPORT IS CONFIDENTIAL AND NOT TO BE RELEASED WITHOUT AUTHORIZATION
--- NOTE | 2020-01-07 02:31 | PR ---
[facility] [address] [facility] [place], [place] [address] Signed PP Progress Notes Datetime Report Generated by N: 01/07/2020 02:31 SUBJECTIVE: [id number] Pain: Within Normal Limits Nausea/Vomiting: Denies Vital Signs: [id number] Vital Signs: Reviewed; Within Normal Limits Notable Details: Afebrile, no tachy, normal pressure, excellent urine output Cardiovascular: Normal Respiratory: Normal Abdomen/Uterus: Normal Lochia: Normal Vulva/Perineum: Normal Breasts: Not Done Extremities: Normal Exam Comments: Fundus firm U-2 nontender. Wyatt w/ 300cc of clear urine. Vaginal packing removed and scant oozing from two superficial locations. Made hemostatic with silver nitrate. IMPRESSION/PLAN/PROCEDURES: [id number] Other Impression: PPH - Improved. Progress Notes: Pt doing well. Vital signs stable, no signs of DIC, and excellent urine output. FFP transfusing now. Blood en route. 2am labs drawn and results pending. Given clinical improvement, will repeat labs at 6am, sooner if clinically indicated. Reviewed in detail w/ pt and RN, and all questions answered Signing Physician: Jimmy So DO Copies: ~ *Electronically Signed* 01/07/20 9338 JIMMY SO DO PATIENT NAME: NUBIA SMITH PROGRESS NOTE DATE OF : 00 PHYSICIAN: JIMMY SO DO RPT #: [id number] REPORT IS CONFIDENTIAL AND NOT TO BE RELEASED WITHOUT AUTHORIZATION
--- NOTE | 2020-01-07 09:32 | PR ---
[facility] [address] [place], [place] [address] Signed PP Progress Notes Datetime Report Generated by LILLIE: 01/07/2020 09:32 SUBJECTIVE: [id number] Pain: Within Normal Limits Nausea/Vomiting: Denies Flatus: No Bowel Movement: No Vital Signs: [id number] Vital Signs: Reviewed; Within Normal Limits Notable Details: VSS, hgb 8.9. Diuresing well, alberts still in place. Not yet ambulating; minimal sleep overnight. Cardiovascular: Normal Respiratory: Normal Abdomen/Uterus: Normal Lochia: Normal Vulva/Perineum: Normal Breasts: Not Done Extremities: Normal Progress: Normal Exam Comments: Pt doing well this morning, color much improved, appears well. Lochia light, fundus firm below umbilicus. IMPRESSION/PLAN/PROCEDURES: [id number] Other Impression: PPH - Improved. Plan: Continue Present Management Progress Notes: PPD#1 s/p with hemorrhage with QBL 1800mL. Alberts in place, not yet ambulating, NPO overnight and just received breakfast tray. Lochia light, pain well-controlled with ice to perineum and orals. s/p 2U pRBCs s/p 2U FFP VSS, hgb stable at 8.9 this morning. Diuresing well. Currently asymptomatic sitting in bed, no dizziness/lightheadedness/syncope. Anticipate alberts removal today, reviewed importance of having assistance first time ambulating. Continue routine care. Repeat CBC at 1900 tonight, then start DVT prophylaxis with lovenox at 2100. Repeat CBC daily in am. Signing Physician: Ang Alonzo DO *Electronically Signed* 01/07/20931 ANG ALONZO DO PATIENT NAME: SARAHNUBIA PROGRESS NOTE DATE OF : 00 PHYSICIAN: ANG ALONZO DO RPT #: [id number] REPORT IS CONFIDENTIAL AND NOT TO BE RELEASED WITHOUT AUTHORIZATION [address] [address] Signed Copies: ~ *Electronically Signed* 01/07/20931 ANG ALONZO DO PATIENT NAME: NUBIA SMITH PROGRESS NOTE DATE OF : 00 PHYSICIAN: ANG ALONZO DO RPT #: [id number] REPORT IS CONFIDENTIAL AND NOT TO BE RELEASED WITHOUT AUTHORIZATION
--- NOTE | 2020-01-08 07:40 | PR ---
[facility] [address] [place], [place] [address] Signed PP Progress Notes Datetime Report Generated by CPN: 01/08/2020 07:40 SUBJECTIVE: [id number] Pain: Within Normal Limits Nausea/Vomiting: Denies Flatus: Yes Bowel Movement: No Vital Signs: [id number] Vital Signs: Reviewed Notable Details: No tachycardia. Excellent output EXAM: Ongoing Cardiovascular: Normal Respiratory: Normal Abdomen/Uterus: Normal Lochia: Normal Vulva/Perineum: Normal Breasts: Not Done CVA Tenderness: Normal Extremities: Normal Incision: Not Applicable Progress: Normal Exam Comments: Fundus firm U-2 nontender. Vulva much improved with decreased swelling. Lochia minimal IMPRESSION/PLAN/PROCEDURES: [id number] Impression: Normal Progression Other Impression: PPH - Improved. Plan: Continue Present Management Progress Notes: Pt seen and examined. Doing very well. Ambulating, voiding, and tolerating full diet. Pain and lochia minimal. No lightheadedness/dizziness. Excellent output. well. Hgb 7.5 this AM. Plan: likely discharge home later this afternoon. Reviewed d/c instructions and medications. Discussed indications for evaluation in the office or ED, but otherwise will plan on 2 wk pp visit. Reviewed pp hemorrhage and managment in detail and all questions answered. Signing Physician: Jimmy So DO Copies: *Electronically Signed* 01/08/20 0740 JIMMY SO DO PATIENT NAME: NUBIA SMITH PROGRESS NOTE DATE OF : 00 PHYSICIAN: JIMMY SO DO RPT #: [id number] REPORT IS CONFIDENTIAL AND NOT TO BE RELEASED WITHOUT AUTHORIZATION [address] [address] Signed ~ *Electronically Signed* 01/08/20 0740 JIMMY SO DO PATIENT NAME: NUBIA SMITH PROGRESS NOTE DATE OF : 00 PHYSICIAN: JIMMY SO DO RPT #: [id number] REPORT IS CONFIDENTIAL AND NOT TO BE RELEASED WITHOUT AUTHORIZATION
--- NOTE | 2020-01-08 13:20 | PR ---
[facility] [address] [place], [place] [address] Signed PP Progress Notes Datetime Report Generated by CPN: 01/08/2020 13:20 SUBJECTIVE: [id number] Pain: Within Normal Limits Nausea/Vomiting: Denies Flatus: Yes Bowel Movement: No Vital Signs: [id number] Vital Signs: Reviewed Notable Details: mild tachycardia EXAM: Ongoing Cardiovascular: Abnormal Respiratory: Normal Abdomen/Uterus: Normal Lochia: Normal Vulva/Perineum: Normal Breasts: Not Done CVA Tenderness: Normal Extremities: Normal Incision: Not Applicable Progress: Normal Exam Comments: Fundus firm U-2 nontender. Vulva much improved with decreased swelling. Lochia minimal IMPRESSION/PLAN/PROCEDURES: [id number] Impression: Difficulties Other Impression: PPH - Improved. Plan: Continue Present Management Progress Notes: PPD #2 s/p with PPH of 1800mL Acute blood loss anemia: Hgb 11.5 on admission, 8.9 PPD#1 s/p 2 units pRBC and 2 units FFP, down to 7.5 this am Mild tachycardia, otherwise asymptomatic, vitals otherwise stable Lochia moderate Plan: start oral iron, repeat CBC in am in case of need for additional transfusion Lactating mother: Continue support consult in am prior to DC to home *Electronically Signed* 01/08/20 1320 ANG ALONZO DO PATIENT NAME: NUBIA SMITH PROGRESS NOTE DATE OF : 00 PHYSICIAN: ANG ALONZO DO RPT #: [id number] REPORT IS CONFIDENTIAL AND NOT TO BE RELEASED WITHOUT AUTHORIZATION [facility] [address] [place], [place] [address] Signed Discussed plan with pt, questions answered to her satisfaction Anticipate DC to home tomorrow Signing Physician: Ang Alonzo DO Copies: ~ *Electronically Signed* 01/08/20 1320 ANG ALONZO DO PATIENT NAME: NUBIA SMITH PROGRESS NOTE DATE OF : 00 PHYSICIAN: ANG ALONZO DO RPT #: [id number] REPORT IS CONFIDENTIAL AND NOT TO BE RELEASED WITHOUT AUTHORIZATION
--- NOTE | 2020-01-09 07:31 | PR ---
[facility] [address] [facility] [place], [place] [address] Signed PP Progress Notes Datetime Report Generated by CPN: 01/09/2020 07:30 SUBJECTIVE: [id number] Pain: Within Normal Limits Nausea/Vomiting: Denies Flatus: Yes Bowel Movement: No Vital Signs: [id number] Vital Signs: Reviewed; Within Normal Limits Notable Details: mild tachycardia EXAM: Ongoing Cardiovascular: Normal Respiratory: Normal Abdomen/Uterus: Normal Lochia: Normal Vulva/Perineum: Not Done Breasts: Not Done CVA Tenderness: Normal Extremities: Normal Incision: Not Applicable Progress: Normal Exam Comments: Fundus firm U-2 nontender IMPRESSION/PLAN/PROCEDURES: [id number] Impression: Normal Progression Other Impression: PPH - Improved. Plan: Discharge Progress Notes: Pt seen and examined. Doing well. Ambulating, voiding, and tolerating full diet. Pain and lochia minimal. No lightheadedness/dizziness since yesterday afternoon, and Hgb improved this morning. Pt desires d/c home today. Reviewed pp instructions and medications. Signing Physician: Jimmy So DO Copies: ~ *Electronically Signed* 01/09/20 6275 JIMMY SO DO PATIENT NAME: NUBIA SMITH PROGRESS NOTE DATE OF : 00 PHYSICIAN: JIMMY SO DO RPT #: [id number] REPORT IS CONFIDENTIAL AND NOT TO BE RELEASED WITHOUT AUTHORIZATION
== END 2020-01-09 09:30 | disposition home or self-care (01) | DRG 806 ==
LOC: FBC 00:03
PROVIDERS: ADMIT Obstetrics & Gynecology; ATTEND Obstetrics & Gynecology
PROC: 3E0P7VZ Introduction of Hormone into Female Reproductive, Via Natural or Artificial Opening (ICD-10-PCS; 2020-01-05)
PROC: 10E0XZZ Delivery of Products of Conception, External Approach (ICD-10-PCS; principal; 2020-01-06)
PROC: 0KQM0ZZ Repair Perineum Muscle, Open Approach (ICD-10-PCS; 2020-01-06)
PROC: 10H07YZ Insertion of Other Device into Products of Conception, Via Natural or Artificial Opening (ICD-10-PCS; 2020-01-06)
PROC: 10907ZC Drainage of Amniotic Fluid, Therapeutic from Products of Conception, Via Natural or Artificial Opening (ICD-10-PCS; 2020-01-06)
PROC: 00HU33Z Insertion of Infusion Device into Spinal Canal, Percutaneous Approach (ICD-10-PCS; 2020-01-06)
PROC: 3E0R3BZ Introduction of Anesthetic Agent into Spinal Canal, Percutaneous Approach (ICD-10-PCS; 2020-01-06)
PROC: 30233K1 Transfusion of Nonautologous Frozen Plasma into Peripheral Vein, Percutaneous Approach (ICD-10-PCS; 2020-01-07)
PROC: 30233N1 Transfusion of Nonautologous Red Blood Cells into Peripheral Vein, Percutaneous Approach (ICD-10-PCS; 2020-01-07)
DX: O10.92 Unspecified pre-existing hypertension complicating childbirth (principal); D62 Acute posthemorrhagic anemia; Z37.0 Single live birth; O72.1 Other immediate postpartum hemorrhage; Z3A.40 40 weeks gestation of pregnancy; O90.81 Anemia of the puerperium; O99.824 Streptococcus B carrier state complicating childbirth; O76 Abnormality in fetal heart rate and rhythm complicating labor and delivery; O70.1 Second degree perineal laceration during delivery; Z79.82 Long term (current) use of aspirin
CPT/HCPCS: 01960; 36415; 80053; 82728; 85025; 85027; 85384; 85610; 85730; 86850; 86900; 86901; 86920; 86927; A9270; J1650; J2540; J2590; J2795; J3010; J7121

== ENCOUNTER 2022-02-28 16:20 | Inpatient (IN) | payer OTHER ==
[~2022-02-28] VITALS: Ht 170.2 cm; Wt 111.1 kg
[~2022-02-28 16:20] MED LIST changes: +ASPIRIN81 MG PO; +VITAFOL-OB+DHA1 EACH PO
--- NOTE | 2022-03-02 12:28 | PR ---
[facility] [address] [place], [place] [address] Signed PP Progress Notes Datetime Report Generated by CPN: 03/02/2022 12:28 SUBJECTIVE: [id number] Pain: Within Normal Limits Nausea/Vomiting: Denies Flatus: Yes Bowel Movement: No Vital Signs: [id number] Vital Signs: Reviewed; Within Normal Limits EXAM: Ongoing Cardiovascular: Normal Respiratory: Normal Abdomen/Uterus: Normal Lochia: Normal Vulva/Perineum: Not Done Breasts: Not Done CVA Tenderness: Normal Extremities: Normal Incision: Not Applicable Progress: Normal Exam Comments: Fundus firm U-2 nontender IMPRESSION/PLAN/PROCEDURES: [id number] Impression: Normal Progression Plan: Discharge Procedures: None Progress Notes: Pt seen and examined. Doing well. Ambulating, voiding, and tolerating full diet. Pain and lochia minimal. well. No fevers/chills or abnormal discharge. No other questions or concerns. Desires d/c home today. Reviewed d/c instructions and medications in detail. Desires micronor for pp contraception. F/U 2 wks. All questions answered Signing Physician: Jimmy So DO Copies: ~ *Electronically Signed* 03/02/22 1875 JIMMY SO (HARSHA) DO PATIENT NAME: NUBIA SMITH PROGRESS NOTE DATE OF : 00 PHYSICIAN: JIMMY SO (JD) DO RPT #: [id number] REPORT IS CONFIDENTIAL AND NOT TO BE RELEASED WITHOUT AUTHORIZATION
== END 2022-03-02 12:48 | disposition home or self-care (01) | DRG 805 ==
LOC: FBCO 16:20 → FBC 16:45
PROVIDERS: ADMIT Obstetrics & Gynecology; ATTEND Obstetrics & Gynecology
PROC: 10E0XZZ Delivery of Products of Conception, External Approach (ICD-10-PCS; principal; 2022-02-28)
PROC: 10907ZC Drainage of Amniotic Fluid, Therapeutic from Products of Conception, Via Natural or Artificial Opening (ICD-10-PCS; 2022-02-28)
PROC: 3E0R3BZ Introduction of Anesthetic Agent into Spinal Canal, Percutaneous Approach (ICD-10-PCS; 2022-02-28)
PROC: 00HU33Z Insertion of Infusion Device into Spinal Canal, Percutaneous Approach (ICD-10-PCS; 2022-02-28)
PROC: 8E0ZXY6 Isolation (ICD-10-PCS; 2022-02-28)
DX: O48.0 Post-term pregnancy (principal); U07.1 COVID-19; Z37.0 Single live birth; O98.52 Other viral diseases complicating childbirth; O99.824 Streptococcus B carrier state complicating childbirth; Z3A.40 40 weeks gestation of pregnancy; O69.81X0 Labor and delivery complicated by cord around neck, without compression, not applicable or unspecified; O43.123 Velamentous insertion of umbilical cord, third trimester; O76 Abnormality in fetal heart rate and rhythm complicating labor and delivery; Z90.49 Acquired absence of other specified parts of digestive tract; Z98.890 Other specified postprocedural states; Z79.82 Long term (current) use of aspirin; O99.214 Obesity complicating childbirth; E66.9 Obesity, unspecified; O77.0 Labor and delivery complicated by meconium in amniotic fluid
CPT/HCPCS: 01960; 36415; 85027; 86850; 86900; 86901; A9270; J2540; J2590; J2795; J3010; J7121

== ENCOUNTER 2024-04-20 12:05 | Inpatient (IN) | payer OTHER ==
[~2024-04-20] VITALS: Ht 170.2 cm; Wt 105.7 kg
[2024-04-21] MEDS ORDERED: MAGNESIUM HYDROXIDE/AL HYDROX 30 ML CUP PO PRN (05:00)
[2024-04-21] MEDS ORDERED: CALCIUM CARBONATE 500 MG CHEW PO PRN (05:00)
[2024-04-21] MEDS ORDERED: LACTATED RINGER'S 1,000 ML IV SCH (05:00)
[2024-04-21] MEDS ORDERED: PENICILLIN G POTASSIUM 5 MUNITS/110 ML PIGGYBACK IV ONE ×2 (05:00→10:00)
[2024-04-21] MEDS ORDERED: PENICILLIN G POTASSIUM 2.5 MUNITS in DEXTROSE 5% 100 ML IV SCH (09:00)
[2024-04-21 09:54] LABS: HEMATOCRIT 34.4 % (35.0-50.0); HEMOGLOBIN 12.1 g/dL (12.0-18.0); MCH 30.8 (27-36); MCHC 35.1 g/dl (30-36); MCV 87.5 fl (81-99); RBC 3.93 M/ul (4.3-5.7); RDW 13.8 (10.5-15.0)
[2024-04-21] MEDS ORDERED: PENICILLIN G POTASSIUM 5 MUNITS/110 ML PIGGYBACK ONE (09:57)
[2024-04-21 10:20] LABS: AMPHETAMINES, URINE NEGATIVE (NEGATIVE); BARBITURATES, URINE NEGATIVE (NEGATIVE); BENZODIAZEPINE, URINE NEGATIVE (NEGATIVE); BUPRENORPHINE, URINE NEGATIVE (NEGATIVE); CANNABINOID, URINE NEGATIVE (NEGATIVE); COCAINE, URINE NEGATIVE (NEGATIVE); ECSTASY, URINE NEGATIVE (NEGATIVE); FENTANYL, URINE NEGATIVE (NEGATIVE); METHADONE, URINE NEGATIVE (NEGATIVE); OPIATES, URINE NEGATIVE (NEGATIVE); OXYCODONE, URINE NEGATIVE (NEGATIVE); PHENCYCLIDINE, URINE NEGATIVE (NEGATIVE)
[2024-04-21 10:23] LABS: ABO O; ANTIBODY SCREEN NEGATIVE; RH POSITIVE
[2024-04-21] MEDS ORDERED: OXYTOCIN/0.9 % SODIUM CHLORIDE 500 ML IV SCH (10:45)
[2024-04-21 13:23] VITALS: BP 138/73
--- NOTE | 2024-04-21 18:04 | PR ---
[facility] [address], [place] [address] Signed Progress Notes IP Datetime Report Generated by CPRobby: 04/21/2024 18:04 PROGRESS NOTES: [id number] Impression: Reassuring Heart Rate Procedures: Sterile Vag Exam Plan: Continue Present Management VITAL SIGNS: [id number] Vital Signs: Reviewed; Within Normal Limits EXAM: [id number] Dilatation: 1.5 Effacement: 60 Station: -4 Contractions: q 2 min MEMBRANES: [id number] Comments: Pt seen and examined. Doing well. Pitocin at 10mU's. Pt w/ moderate cramping but not painful. Cx unchanged remains cephalic but unengaged despite pitocin. Discussed options and I am concerned about rupture of membranes with unstable lie and poorly engaged vertex. Discussed adequate pelvis and EFW. If unchanged at next check, would consider Cook catheter FETUS A: [id number] FHR Baseline: 130 Variability: Moderate 6-25bpm Accelerations: 15X15 Decelerations: None FHR Category: Category I Presentation: Vertex Comments on Fetus A: No evidence of metabolic acidosis FETUS B: [id number] Signing Physician: Jimmy So DO Copies: ~ *Electronically Signed* 04/21/24 2034 JIMMY SO (HARSHA) DO PATIENT NAME: NUBIA SMITH PROGRESS NOTE DATE OF : 00 PHYSICIAN: JIMMY SO (JD) DO RPT #: [id number] REPORT IS CONFIDENTIAL AND NOT TO BE RELEASED WITHOUT AUTHORIZATION
--- NOTE | 2024-04-21 20:29 | PR ---
[facility] [address] [place], [place] [address] Signed Progress Notes IP Datetime Report Generated by CPRobby: 04/21/2024 20:29 PROGRESS NOTES: [id number] Impression: Normal Progression of Labor; Reassuring Heart Rate Procedures: Artificial ROM; Sterile Vag Exam Plan: Continue Present Management Other Plans: Stop pitocin; expectant management Informed Consent Obtain: Vaginal Delivery; Risks, Benefits and Alternatives Discussed VITAL SIGNS: [id number] Vital Signs: Reviewed; Within Normal Limits EXAM: [id number] Dilatation: 4.0 Effacement: 60 Station: -4 Contractions: q <1 min MEMBRANES: [id number] Comments: Pt seen and examined. Doing well. Mild cramping w/ contractions on pit. Tachysystole noted. Pitocin discontinued. vertex well applied although cervix very posterior. Recommended AROM and pt agrees. AROM easily performed for moderate amount of clear fluid. Hold pitocin and will expectantly manage and restart pitocin if needed. Planning epidural. Anticpate FETUS A: [id number] FHR Baseline: 130 Variability: Moderate 6-25bpm Accelerations: 15X15 Decelerations: Late; Variable FHR Category: Category II Presentation: Vertex Comments on Fetus A: No evidence of metabolic acidosis FETUS B: [id number] Signing Physician: Jimmy So DO Copies: ~ *Electronically Signed* 04/21/242028 JIMMY SO (HARSHA) DO PATIENT NAME: NUBIA SMITH PROGRESS NOTE DATE OF : 00 PHYSICIAN: JIMMY SO) DO RPT #: [id number] REPORT IS CONFIDENTIAL AND NOT TO BE RELEASED WITHOUT AUTHORIZATION
[2024-04-21] MEDS ORDERED: ROPIVACAINE 0.2% 200 ML BAG ONE (21:47)
[2024-04-21] MEDS ORDERED: LIDOCAINE HCL 2% 5 ML SDV ONE (21:47)
[2024-04-21] MEDS ORDERED: BUPIVACAINE HCL 0.25% 10 ML SDV INJ ONE (21:48)
[2024-04-21] MEDS ORDERED: dexmedeTOMIDine HCl 200 MCG/2 ML VIAL ONE (21:48)
[2024-04-21] MEDS ORDERED: ROPIVACAINE 0.2% 200 ML BAG EPIDURAL SCH ×2 (22:45)
[2024-04-21] MEDS ORDERED: ePHEDrine sulfate 5 MG/ML SYRINGE IV PRN (22:45)
[2024-04-21] MEDS ORDERED: LACTATED RINGER'S 2,000 ML IV ONE (22:45)
[2024-04-21] MEDS ORDERED: LACTATED RINGER'S 500 ML IV PRN (22:45)
[2024-04-22] MEDS ORDERED: SOD+POT BICARB/CITRIC ACID 2 EA TABLET.EFF PO ONE (02:15)
[2024-04-22] MEDS ORDERED: AZITHROMYCIN/DEXTROSE 500 MG/250 ML PIGGYBACK IV STA (02:15)
[2024-04-22] MEDS ORDERED: LACTATED RINGER'S 1,000 ML IV PRN (02:15)
--- NOTE | 2024-04-22 02:15 | PR ---
[facility] [address] [place], [place] [address] Signed Progress Notes IP Datetime Report Generated by LILLIE: 04/22/2024 02:15 PROGRESS NOTES: [id number] Impression: Reassuring Heart Rate Other Impressions: Cord prolapse Procedures: Sterile Vag Exam Plan: Deliver- Section Other Plans: Stop pitocin; expectant management Informed Consent Obtain: Section Delivery; Dilatation and Curretage; Risks, Benefits and Alternatives Discussed VITAL SIGNS: [id number] Vital Signs: Reviewed; Within Normal Limits EXAM: [id number] Dilatation: 5.0 Effacement: 60 Station: -2 Contractions: q 1-2 min MEMBRANES: [id number] Comments: Called by RN about possible new prolapsed cord. Presented to C DEBBI and RN at bedside suppporting vertex. Terbutaline was administered while I was en route. On exam, prolpased cord noted and unable to reduce. Pt was consented for emergent primary C/S. Risks/benefits/alternatives discussed. Pt understands and wishes to proceed. Cosents signed. Ancef 2 g IV and Azithromicin 500mg IV ordered. Will continue providing vertex elevation to avoid cord compression with OR crew en route FETUS A: [id number] FHR Baseline: 130 Variability: Moderate 6-25bpm Accelerations: 15X15 Decelerations: Variable FHR Category: Category II Presentation: Vertex Comments on Fetus A: No evidence of metabolic acidosis FETUS B: [id number] Signing Physician: Jimmy So DO *Electronically Signed* 04/22/24 3596 JIMMY SO) DO PATIENT NAME: NUBIA SMITH PROGRESS NOTE DATE OF : 00 PHYSICIAN: JIMMY SO) DO RPT #: [id number] REPORT IS CONFIDENTIAL AND NOT TO BE RELEASED WITHOUT AUTHORIZATION
[2024-04-22] MEDS ORDERED: CEFAZOLIN SODIUM 2 GM/20 ML SYR IV SCH (02:16)
[2024-04-22] MEDS ORDERED: LIDOCAINE 2% W/ EPI 1:200,000 20 ML SDV ONE (02:20)
[2024-04-22] MEDS ORDERED: propofoL 200 MG/20 ML VIAL ONE (02:25)
[2024-04-22] MEDS ORDERED: SUCCINYLCHOLINE IN 0.9% NACL 200 MG/10 ML SYRINGE ONE (02:25)
[2024-04-22] MEDS ORDERED: OXYTOCIN 10 UNITS/ML VIAL ONE (02:28)
[2024-04-22] MEDS ORDERED: METOCLOPRAMIDE HCL 10 MG/2 ML SDV ONE (02:28)
[2024-04-22] MEDS ORDERED: ondansetron HCL 4 MG/2 ML VIAL ONE ×2 (02:28→02:30)
[2024-04-22] MEDS ORDERED: DEXAMETHASONE SOD PHOS 4 MG/ML VIAL ONE ×2 (02:28→02:38)
[2024-04-22] MEDS ORDERED: FAMOTIDINE 20 MG/ 2 ML VIAL ONE (02:29)
[2024-04-22] MEDS ORDERED: MORPHINE SULFATE 1 MG/ML VIAL ONE (02:32)
[2024-04-22] MEDS ORDERED: ePHEDrine sulfate 50 MG/ML AMP ONE (02:38)
[2024-04-22] MEDS ORDERED: SODIUM CHLORIDE 0.9% 40 ML IV ONE (02:39)
[2024-04-22] MEDS ORDERED: Ropivacaine HCl 0.5% 30 ML VIAL ONE (02:39)
[2024-04-22] MEDS ORDERED: LACTATED RINGER'S 1,000 ML IV ONE ×3 (02:50)
[2024-04-22] MEDS ORDERED: PROCHLORPERAZINE EDISYLATE 10 MG/2 ML VIAL IV PRN ×3 (03:15)
[2024-04-22] MEDS ORDERED: OXYCODONE HCL 5 MG TAB PO PRN (03:15)
[2024-04-22] MEDS ORDERED: NALOXONE HCL 0.4 MG SYR IV PRN ×2 (03:15)
[2024-04-22] MEDS ORDERED: OXYTOCIN/0.9 % SODIUM CHLORIDE 500 ML IV SCH (03:15)
[2024-04-22] MEDS ORDERED: droPERidol 5 MG/2 ML VIAL IV PRN (03:15)
[2024-04-22] MEDS ORDERED: PROMETHAZINE HCL 25 MG TAB PO PRN (03:15)
[2024-04-22] MEDS ORDERED: METOCLOPRAMIDE HCL 10 MG/2 ML SDV IV PRN ×3 (03:15)
[2024-04-22] MEDS ORDERED: bisacodyL 10 MG SUPP PR PRN (03:15)
[2024-04-22] MEDS ORDERED: PROMETHAZINE HCL 25 MG SUPP PR PRN (03:15)
[2024-04-22] MEDS ORDERED: ondansetron HCL 4 MG/2 ML VIAL IV PRN ×3 (03:15)
[2024-04-22] MEDS ORDERED: IBLOOD GLUCOSE TEST STRIP 1 EA TEST VI PRN (03:15)
[2024-04-22] MEDS ORDERED: MORPHINE SULFATE 4 MG/ML VIAL IV PRN (03:15)
[2024-04-22] MEDS ORDERED: OXYCODONE/APAP 5/325 TAB PO PRN (03:15)
[2024-04-22] MEDS ORDERED: diphenhydrAMINE HCL 50 MG/ML VIAL IV PRN (03:15)
[2024-04-22] MEDS ORDERED: HYDROCODONE/ACETA 5/325 TAB PO PRN (03:15)
[2024-04-22] MEDS ORDERED: MORPHINE SULFATE 10 MG/ML VIAL IV PRN (03:15)
[2024-04-22] MEDS ORDERED: diphenhydrAMINE HCL 25 MG CAP PO PRN (03:15)
[2024-04-22] MEDS ORDERED: fentaNYL citrate 50 MCG/ML SDV IV PRN (03:15)
[2024-04-22] MEDS ORDERED: KETOROLAC TROMETHAMINE 30 MG/ML VIAL IV PRN (03:15)
[2024-04-22] MEDS ORDERED: LACTATED RINGER'S 1,000 ML IV SCH (03:19)
--- NOTE | 2024-04-22 03:51 | NUR ---
04/22/24 0351 Sheets,Cielo 0323 PT ARRIVED TO PACU ON RA, PT AWAKE AND DENIES CONERNS. PT REPORTS BEING VERY NUMB. SPINAL LEVEL T-5 AND PT DENIES SOB. HOB INCREASED SLIGHTLY. VSS. TWO IVS IN PLACE AND LEFT HAND INFUSING LR WITH 30 PIT AND SIGHT WNL, LEFT FOREARM SL. 0338 BABY TO CHEST WITH FBC RN, HOB INCREASED SLIGHTLY.
[2024-04-22 03:59] VITALS: BP 98/52
[2024-04-22] MEDS ORDERED: FERROUS SULFATE 325 MG TAB PO SCH (08:00)
[2024-04-22] MEDS ORDERED: KETOROLAC TROMETHAMINE 30 MG/ML VIAL IV SCH (08:00)
[2024-04-22] MEDS ORDERED: ENOXAPARIN SODIUM 40 MG/0.4 ML SYR SUB-Q SCH (09:00)
[2024-04-22] MEDS ORDERED: SENNOSIDES/DOCUSATE 1 EA TAB PO SCH (09:00)
[2024-04-23] MEDS ORDERED: LACTATED RINGER'S 1,000 ML IV SCH (05:00)
[2024-04-23 05:28] LABS: HEMATOCRIT 24.4 % (35.0-50.0); HEMOGLOBIN 8.4 g/dL (12.0-18.0); MCH 30.7 (27-36); MCHC 34.5 g/dl (30-36); MCV 89.1 fl (81-99); RBC 2.74 M/ul (4.3-5.7)
--- NOTE | 2024-04-23 07:59 | PR ---
[facility] [address] [facility] [place], [place] [address] Signed PP Progress Notes Datetime Report Generated by CPN: 04/23/2024 07:59 SUBJECTIVE: [id number] Pain: Within Normal Limits Nausea/Vomiting: Denies Flatus: Yes Bowel Movement: Yes Vital Signs: [id number] Vital Signs: Reviewed; Within Normal Limits EXAM: Ongoing Cardiovascular: Normal Respiratory: Normal Abdomen/Uterus: Normal Lochia: Normal Vulva/Perineum: Not Done Breasts: Not Done CVA Tenderness: Not Done Extremities: Normal Incision: Normal Progress: Normal Exam Comments: Fundus firm U-2 nontender incision bandaged and dry. IMPRESSION/PLAN/PROCEDURES: [id number] Impression: Normal Progression Plan: Continue Present Management Progress Notes: Pt seen and examined. Doing well. Ambulating, voiding, and tolerating full diet. Pain and lochia minimal. well. No fevers/chills or other concerns. Anticipate d/c home tomorrow. Signing Physician: Jimmy So DO Copies: ~ *Electronically Signed* 04/23/24 0759 JIMMY SO (HARSHA) DO PATIENT NAME: NUBIA SMITH PROGRESS NOTE DATE OF : 00 PHYSICIAN: JIMMY SO (HARSHA) DO RPT #: [id number] REPORT IS CONFIDENTIAL AND NOT TO BE RELEASED WITHOUT AUTHORIZATION
[2024-04-23] MEDS ORDERED: IBUPROFEN 600 MG TAB PO SCH (08:00)
[2024-04-23] MEDS ORDERED: ENOXAPARIN SODIUM 40 MG/0.4 ML SYR SUB-Q SCH (09:00)
--- NOTE | 2024-04-24 09:04 | PR ---
[facility] [address] [place], [place] [address] Signed PP Progress Notes Datetime Report Generated by LILLIE: 04/24/2024 09:03 SUBJECTIVE: [id number] Pain: Within Normal Limits Nausea/Vomiting: Denies Flatus: Yes Bowel Movement: Yes Vital Signs: [id number] Vital Signs: Reviewed; Within Normal Limits EXAM: Ongoing Cardiovascular: Normal Respiratory: Normal Abdomen/Uterus: Normal Lochia: Normal Vulva/Perineum: Not Done Breasts: Not Done CVA Tenderness: Normal Extremities: Normal Incision: Normal Progress: Normal Exam Comments: Fundus firm U-2 nontender. Incision healing well w/ katherine in place IMPRESSION/PLAN/PROCEDURES: [id number] Impression: Normal Progression Plan: Discharge Progress Notes: Pt seen and examined. Doing well. Ambulating, voiding, and tolerating full diet. Pain and lochia minimal. . No fevers/chills or other concerns. Desires d/c home today but will depend on pediatrics assessment of . Discussed d/c instructions and medications. Planning vasectomy for pp contraception. No other questions or concerns. Await peds recommendations Signing Physician: Jimmy So DO Copies: ~ *Electronically Signed* 04/24/24 09 JIMMY SO (HARSHA) DO PATIENT NAME: NUBIA SMITH PROGRESS NOTE DATE OF : 00 PHYSICIAN: JIMMY SO (JD) DO RPT #: [id number] REPORT IS CONFIDENTIAL AND NOT TO BE RELEASED WITHOUT AUTHORIZATION
== END 2024-04-24 14:15 | disposition home or self-care (01) | DRG 788 ==
LOC: FBC 04-21 08:09
PROVIDERS: ADMIT Obstetrics & Gynecology; ATTEND Obstetrics & Gynecology
PROC: 3E033VJ Introduction of Other Hormone into Peripheral Vein, Percutaneous Approach (ICD-10-PCS; principal; 2024-04-21)
PROC: 10D00Z1 Extraction of Products of Conception, Low, Open Approach (ICD-10-PCS; principal; 2024-04-21)
DX: O69.0XX0 Labor and delivery complicated by prolapse of cord, not applicable or unspecified (principal); Z37.0 Single live birth; O76 Abnormality in fetal heart rate and rhythm complicating labor and delivery; O16.4 Unspecified maternal hypertension, complicating childbirth; O32.0XX0 Maternal care for unstable lie, not applicable or unspecified; Z3A.39 39 weeks gestation of pregnancy; O99.824 Streptococcus B carrier state complicating childbirth
CPT/HCPCS: 01961; 36415; 76942; 80307; 82803; 85027; 86850; 86900; 86901; A9270; J0330; J0456; J0690; J1100; J1650; J1885; J2003; J2274; J2405; J2540; J2590; J2704; J2765; J2795; J7121